=== PATIENT | female | born 2005 | race American Indian/Alaskan Native ===

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

== ENCOUNTER 2023-06-13 14:00 | Emergency (ER) | payer MEDICAID ==
[2023-06-13] MEDS ORDERED: Sodium Chloride 0.9% 10 ML Syringe FLUSH PRN (14:01)
[2023-06-13] MEDS ORDERED: Ondansetron 4 MG Tab.DIS PO ONE (14:06)
[2023-06-13 14:18] LABS: APPEARANCE,URINE CLEAR (CLEAR); BILIRUBIN,URINE NEGATIVE (NEGATIVE); COLOR,URINE YELLOW (YELLOW); GLUCOSE,URINE NEGATIVE (NEGATIVE); KETONES,URINE NEGATIVE (NEGATIVE); LEUKOCYTE ESTERASE,URINE NEGATIVE (NEGATIVE); NITRITE,URINE NEGATIVE (NEGATIVE); OCCULT BLOOD,URINE NEGATIVE (NEGATIVE); PH,URINE 8.5 (5.0-9.0); PROTEIN,URINE 100 (NEGATIVE); UROBILINOGEN,URINE 0.2 mg/dL (0.2-1.0)
[2023-06-13 14:19] LABS: AMPHETAMINES,URINE NEGATIVE (NEGATIVE); BARBITURATES,URINE NEGATIVE (NEGATIVE); BENZODIAZEPINE,URINE NEGATIVE (NEGATIVE); MDMA (ECSTASY), URINE NEGATIVE (NEGATIVE); METHADONE,URINE NEGATIVE (NEGATIVE); METHAMPHETAMINES,URINE NEGATIVE (NEGATIVE); OPIATES,URINE NEGATIVE (NEGATIVE); OXYCODONE,URINE NEGATIVE (NEGATIVE); PHENCYCLIDINE,URINE NEGATIVE (NEGATIVE); TCA,URINE NEGATIVE (NEGATIVE)
[2023-06-13 14:36] LABS: BASOPHILS PERCENT AUTO 0.6 % (0.0-1.0); HEMATOCRIT 39.8 % (37.0-47.0); LYMPHOCYTES PERCENT AUTO 9.3 % (20.5-50.1); MEAN CORPUSCULAR HEMOGLOBIN 29.4 pg (27.0-34.0); MEAN CORPUSCULAR HGB CONC 35.2 g/dL (33.0-35.0); MEAN CORPUSCULAR VOLUME 83.6 fL (80-100); NEUTROPHILS PERCENT AUTO 87.1 % (42.2-75.2); PLATELET COUNT,PLT 335 10^3/uL (150-450); RED BLOOD CELL COUNT 4.76 10^6/uL (4.2-5.4); WHITE BLOOD CELL COUNT,WBC 9.3 10^3/uL (5.0-10.0)
[2023-06-13 14:39] LABS: BACTERIA,URINE MODERATE /HPF (0-FEW/HPF); EPITHELIAL CELLS,URINE MODERATE /HPF (NOT SEEN); MUCUS,URINE FEW /LPF (NOT SEEN); WBC,URINE 0-5 /HPF (0-5/HPF)
[2023-06-13 14:43] VITALS: BP 116/75; PULSE 72
[2023-06-13 14:54] LABS: ALBUMIN 4.1 g/dL (3.4-5.0); ANION GAP 17.6 mEq/L (7-13); BILIRUBIN TOTAL 0.3 mg/dL (0.2-1.0); BUN/CREATININE RATIO 15.2 (No establ ref range); CALCIUM 9.1 mg/dL (8.5-10.1); CREATININE 0.66 mg/dL (0.55-1.02); EST CRCL DRUG DOSING (CG) 128.35 mL/min; POTASSIUM,K 3.6 mmol/L (3.5-5.1); PROTEIN TOTAL,TP 8.2 g/dL (6.4-8.2)
[2023-06-13 14:57] LABS: LACTIC ACID 1.1 mmol/L (0.4-2.0)
[2023-06-13 15:02] LABS: C-REACTIVE PROTEIN 0.09 ng/dL (<=0.30)
[2023-06-13] MEDS ORDERED: Take Home: Ondansetron 4 MG Tab.DIS, 5 Tab Pack PO ONE (15:17)
== END 2023-06-13 15:51 | disposition home or self-care (01) ==
LOC: DL.ED 14:00
DX: R11.2 Nausea with vomiting, unspecified (principal)
CPT/HCPCS: 36415; 80053; 80305; 81001; 81025; 83605; 85025; 86140; 87040; 99283; 99284; A9270; Q0162; J3490

== ENCOUNTER 2023-07-12 15:25 | Emergency (ER) | payer MEDICAID ==
[2023-07-12 16:22] VITALS: BP 121/75; PULSE 86
[2023-07-12] MEDS ORDERED: Ketorolac 30 MG/ML SDV IM ONE (16:29)
[2023-07-12 16:51] LABS: APPEARANCE,URINE CLEAR (CLEAR); BILIRUBIN,URINE NEGATIVE (NEGATIVE); COLOR,URINE YELLOW (YELLOW); GLUCOSE,URINE NEGATIVE (NEGATIVE); KETONES,URINE 15 (NEGATIVE); LEUKOCYTE ESTERASE,URINE NEGATIVE (NEGATIVE); NITRITE,URINE NEGATIVE (NEGATIVE); OCCULT BLOOD,URINE MODERATE (NEGATIVE); PH,URINE >= 9.0 (5.0-9.0); PROTEIN,URINE >=300 (NEGATIVE); UROBILINOGEN,URINE 0.2 mg/dL (0.2-1.0)
[2023-07-12 17:04] LABS: BACTERIA,URINE FEW /HPF (0-FEW/HPF); EPITHELIAL CELLS,URINE FEW /HPF (NOT SEEN); MUCUS,URINE FEW /LPF (NOT SEEN); RBC,URINE 20-30 /HPF (0-5); WBC,URINE 0-5 /HPF (0-5/HPF)
== END 2023-07-12 17:21 | disposition home or self-care (01) ==
LOC: DL.ED 15:25
DX: N94.6 Dysmenorrhea, unspecified (principal)
CPT/HCPCS: 81001; 81025; 96372; 99283; 99284; J1885

== ENCOUNTER 2023-09-16 07:30 | Emergency (ER) | payer MEDICAID ==
[2023-09-16 07:58] LABS: APPEARANCE,URINE CLEAR (CLEAR); BILIRUBIN,URINE NEGATIVE (NEGATIVE); COLOR,URINE YELLOW (YELLOW); GLUCOSE,URINE NEGATIVE (NEGATIVE); KETONES,URINE NEGATIVE (NEGATIVE); LEUKOCYTE ESTERASE,URINE NEGATIVE (NEGATIVE); NITRITE,URINE NEGATIVE (NEGATIVE); OCCULT BLOOD,URINE NEGATIVE (NEGATIVE); PH,URINE 7.5 (5.0-9.0); PROTEIN,URINE NEGATIVE (NEGATIVE); UROBILINOGEN,URINE 0.2 mg/dL (0.2-1.0)
[2023-09-16] MEDS ORDERED: Ondansetron 4 MG Tab.DIS PO ONE (08:35)
[2023-09-16 08:58] VITALS: BP 112/84; PULSE 84
== END 2023-09-16 10:27 | disposition home or self-care (01) ==
LOC: DL.ED 07:30
DX: O20.8 Other hemorrhage in early pregnancy (principal); O21.9 Vomiting of pregnancy, unspecified; Z3A.01 Less than 8 weeks gestation of pregnancy
CPT/HCPCS: 36415; 76817; 81003; 81025; 84702; 99284; A9270-GY

== ENCOUNTER 2023-10-01 10:51 | Emergency (ER) | payer MEDICAID ==
[2023-10-01 11:08] VITALS: BP 130/93; PULSE 86
[2023-10-01] MEDS ORDERED: Sodium Chloride 0.9% 1,000 ML IV ONE (11:39)
[2023-10-01] MEDS ORDERED: Sodium Chloride 0.9% 10 ML Syringe FLUSH PRN (11:39)
[2023-10-01] MEDS ORDERED: Acetaminophen 500 MG Tab PO ONE (11:40)
[2023-10-01] MEDS ORDERED: Metoclopramide 10 MG/2 ML SDV IVPUSH ONE (11:40)
[2023-10-01 12:14] LABS: A/G RATIO 0.8; ALBUMIN 3.7 g/dL (3.4-5.0); ANION GAP 15.6 mEq/L (7-13); BILIRUBIN TOTAL 0.4 mg/dL (0.2-1.0); BUN/CREATININE RATIO 13.9 (No establ ref range); CALCIUM 8.9 mg/dL (8.5-10.1); CREATININE 0.72 mg/dL (0.55-1.02); EST CRCL DRUG DOSING (CG) 103.1 mL/min; MAGNESIUM 1.7 mg/dL (1.8-2.4); POTASSIUM,K 3.6 mmol/L (3.5-5.1); PROTEIN TOTAL,TP 8.2 g/dL (6.4-8.2)
== END 2023-10-01 13:27 | disposition home or self-care (01) ==
LOC: DL.ED 10:51
DX: B34.9 Viral infection, unspecified (principal); Z79.899 Other long term (current) drug therapy
CPT/HCPCS: 36415; 80053; 83735; 87210; 96361; 96374; 99283; 99284-25; A9270-GY; J2765; J3490; J7030

== ENCOUNTER 2023-10-20 11:06 | Emergency (ER) | payer MEDICAID ==
[2023-10-20] MEDS ORDERED: Sodium Chloride 0.9% 1,000 ML IV ONE ×2 (11:18→12:18)
[2023-10-20] MEDS ORDERED: Ondansetron 4 MG in Sodium Chloride 0.9% 50 ML IV ONE (11:18)
[2023-10-20] MEDS ORDERED: Sodium Chloride 0.9% 10 ML Syringe FLUSH PRN (11:20)
[2023-10-20] MEDS ORDERED: Ondansetron 4 MG/2 ML SDV IVPUSH ONE (11:29)
[2023-10-20 11:52] VITALS: BP 119/88; PULSE 74
== END 2023-10-20 13:04 | disposition home or self-care (01) ==
LOC: DL.ED 11:06
DX: O21.0 Mild hyperemesis gravidarum (principal); Z3A.11 11 weeks gestation of pregnancy; Z79.899 Other long term (current) drug therapy
CPT/HCPCS: 96361; 96374; 99283; J2405; J7030; J3490

== ENCOUNTER 2023-11-17 12:34 | Emergency (ER) | payer MEDICAID ==
[2023-11-17 13:31] VITALS: BP 144/108; PULSE 92
== END 2023-11-17 14:33 | disposition home or self-care (01) ==
LOC: DL.ED 12:34
DX: K08.89 Other specified disorders of teeth and supporting structures (principal); H92.02 Otalgia, left ear
CPT/HCPCS: 99282

== ENCOUNTER 2024-02-14 20:27 | Emergency (ER) | payer MEDICAID ==
[2024-02-14 20:43] VITALS: BP 126/77; PULSE 70
[2024-02-14 21:05] LABS: BASOPHILS PERCENT AUTO 0.3 % (0.0-1.0); EOSINOPHILS PERCENT AUTO 0.7 % (1.0-3.0); HEMATOCRIT 34.5 % (37.0-47.0); LYMPHOCYTES PERCENT AUTO 18.7 % (20.5-50.1); MEAN CORPUSCULAR HEMOGLOBIN 30.5 pg (27.0-34.0); MEAN CORPUSCULAR HGB CONC 34.8 g/dL (33.0-35.0); MEAN CORPUSCULAR VOLUME 87.8 fL (80-100); MONOCYTES PERCENT AUTO 8.7 % (2-8); NEUTROPHILS PERCENT AUTO 71.6 % (42.2-75.2); PLATELET COUNT,PLT 265 10^3/uL (150-450); RED BLOOD CELL COUNT 3.93 10^6/uL (4.2-5.4); WHITE BLOOD CELL COUNT,WBC 10.3 10^3/uL (5.0-10.0)
[2024-02-14] MEDS: Sodium Chloride 0.9% 1,000 ML IV ONE (21:07)
[2024-02-14 21:32] LABS: ALANINE AMINOTRANSFERASE,ALT 15 U/L (14-59); ALBUMIN 2.7 g/dL (3.4-5.0); ALKALINE PHOSPHATASE 89 U/L (46-116); ANION GAP 16.6 mEq/L (7-13); ASPARTATE AMNIOTRANSFERASE,AST 13 U/L (15-37); BILIRUBIN TOTAL 0.2 mg/dL (0.2-1.0); BLOOD UREA NITROGEN,BUN 5 mg/dL (7-18); BUN/CREATININE RATIO 8.6 (No establ ref range); CALCIUM 8.3 mg/dL (8.5-10.1); CARBON DIOXIDE,CO2 22 mmol/L (21-32); CHLORIDE,CL 104 mmol/L (98-107); CREATININE 0.58 mg/dL (0.55-1.02); EST CRCL DRUG DOSING (CG) 127.99 mL/min; GLUCOSE RANDOM 95 mg/dL (70-99); MAGNESIUM 1.6 mg/dL (1.8-2.4); POTASSIUM,K 3.6 mmol/L (3.5-5.1); PROTEIN TOTAL,TP 7.2 g/dL (6.4-8.2); SODIUM,NA 139 mmol/L (136-145)
[2024-02-14 21:33] LABS: ESTIMATED GFR 133 mL/min (>=60)
[2024-02-14 21:52] LABS: APPEARANCE,URINE CLEAR (CLEAR); BILIRUBIN,URINE NEGATIVE (NEGATIVE); COLOR,URINE YELLOW (YELLOW); GLUCOSE,URINE NEGATIVE (NEGATIVE); KETONES,URINE NEGATIVE (NEGATIVE); LEUKOCYTE ESTERASE,URINE NEGATIVE (NEGATIVE); NITRITE,URINE NEGATIVE (NEGATIVE); OCCULT BLOOD,URINE NEGATIVE (NEGATIVE); PROTEIN,URINE NEGATIVE (NEGATIVE); UROBILINOGEN,URINE 0.2 mg/dL (0.2-1.0)
[2024-02-14] MEDS: Magnesium Sulfate/Water 2 GM in Premix Bag 1 BAG IV ONE (22:39)
== END 2024-02-15 00:36 | disposition home or self-care (01) ==
LOC: DL.ED 20:27
DX: O99.283 Endocrine, nutritional and metabolic diseases complicating pregnancy, third trimester (principal); E86.0 Dehydration; E86.9 Volume depletion, unspecified; E83.42 Hypomagnesemia; Z79.899 Other long term (current) drug therapy; Z3A.28 28 weeks gestation of pregnancy
CPT/HCPCS: 36415; 70450; 71045; 80053; 81003; 82947; 83735; 84484; 85025; 93005; 93010; 96361; 96365; 96366; 99284; 99285-25; J3475; J7030

== ENCOUNTER 2024-10-05 11:21 | Emergency (ER) | payer MEDICAID ==
[2024-10-05 13:10] VITALS: BP 123/76; PULSE 67
[2024-10-05] MEDS: Ketorolac 30 MG/ML SDV IM ONE (13:56)
[2024-10-05] MEDS: Orphenadrine 60 MG/2 ML Inj IM ONE (13:57)
== END 2024-10-05 14:30 | disposition home or self-care (01) ==
LOC: DL.ED 11:21
DX: S39.92XA Unspecified injury of lower back, initial encounter (principal); F17.200 Nicotine dependence, unspecified, uncomplicated; Z79.899 Other long term (current) drug therapy; W01.0XXA Fall on same level from slipping, tripping and stumbling without subsequent striking against object, initial encounter
CPT/HCPCS: 72100; 96372; 99282; 99283; J1885; J2360

== ENCOUNTER 2024-11-27 02:22 | Emergency (ER) | payer MEDICAID ==
[2024-11-27 03:47] VITALS: BP 140/93; PULSE 77
== END 2024-11-27 03:29 | disposition home or self-care (01) ==
LOC: DL.ED 02:22
DX: F10.120 Alcohol abuse with intoxication, uncomplicated (principal); F12.90 Cannabis use, unspecified, uncomplicated; Y90.9 Presence of alcohol in blood, level not specified
CPT/HCPCS: 36415; 80307; 93010; 99284; 99285